=== PATIENT | female | born 1960 | race Caucasian/White ===

== ENCOUNTER 2021-01-29 14:13 | Outpatient (REF) | payer OTHER, BC, SELFPAY ==
--- NOTE | ~2021-01-29 | XR_ITS ---
EXAMINATION: XR CERVICAL SPINE CLINICAL INFORMATION: Neck pain. COMPARISON: X-ray 05/04/2017. TECHNIQUE: 6 views of the cervical spine were obtained. FINDINGS: Posterior vertebral body alignment is maintained. Predens space is maintained. No prevertebral soft tissue swelling. No evidence of acute fracture. Mild spondylosis at C4-C5, C5-C6. There is mild facet degeneration at a few levels. There is apparent prominent neural foraminal narrowing left upper/mid cervical spine, which could be secondary to positioning/technique. The base of the dens is intact. Visualized lung apices are clear. XR/XR cervical spine min 6V IMPRESSION: No evidence of acute osseous abnormality. Apparent prominent left-sided neural foraminal narrowing in the upper/mid cervical spine, which could be secondary to positioning/technique. Further evaluation with cross-sectional imaging as clinically warranted. Mild cervical spondylosis otherwise.
== END 2021-01-29 14:14 | disposition home or self-care (01) ==
LOC: HO.XRAY 14:13
PROVIDERS: PCP Family Medicine; Visit Provider Family Medicine
DX: M54.2 Cervicalgia (principal)
CPT/HCPCS: 72052

== ENCOUNTER → 2021-02-17 10:43 | Outpatient (BNVA) | payer OTHER, BC, SELFPAY | PROVIDERS: PCP Family Medicine; Visit Provider Anesthesiology | DX: M54.2 Cervicalgia (principal) | CPT/HCPCS: 99202 ==

== ENCOUNTER → 2021-05-03 10:05 | Outpatient (BNVA) | payer OTHER, SELFPAY | PROVIDERS: PCP Family Medicine; Visit Provider Anesthesiology | DX: M54.2 Cervicalgia (principal) | CPT/HCPCS: 99212 ==

== ENCOUNTER → 2021-07-19 14:52 | Outpatient (BNVA) | payer OTHER, SELFPAY | PROVIDERS: PCP Family Medicine; Visit Provider Anesthesiology | DX: M54.2 Cervicalgia (principal) | CPT/HCPCS: 99212 ==

== ENCOUNTER 2021-08-17 09:50 | Outpatient (REF) | payer BC, SELFPAY ==
--- NOTE | ~2021-08-17 | FL_ITS ---
EXAMINATION: FL BARIUM SWALLOW CLINICAL INFORMATION: Dysphagia COMPARISON: None TECHNIQUE: Barium swallow using thick barium and effervescent granules. The patient is imaged upright only. Prone images were not performed. Barium tablet was also administered. Fluoroscopy time: 0.4 minutes DAP: 1.4 Gycm2 Images: 31 FINDINGS: There is aspiration seen with thick liquid barium. Esophageal motility is normal. No esophageal mass, stricture or evidence of esophagitis is seen. No hernia or reflux was observed with the patient in the upright position. The barium tablet passed freely into the stomach. FL/FL barium swallow IMPRESSION: Aspiration with thick barium.
== END 2021-08-17 09:51 | disposition home or self-care (01) ==
LOC: HO.XRAY 09:50
PROVIDERS: PCP Family Medicine; Visit Provider Otolaryngology
DX: R13.10 Dysphagia, unspecified (principal)
CPT/HCPCS: 74220

== ENCOUNTER 2021-11-30 06:30 | Outpatient (REF) | payer BC, SELFPAY ==
--- NOTE | ~2021-11-30 | FL_ITS ---
EXAMINATION: XR FLUOROSCOPY WITH IMAGES CLINICAL INFORMATION: Cervicalgia. COMPARISON: 06/19/2017. TECHNIQUE: Fluoroscopy performed by Dr. Mitch Pittman. Fluoroscopy time: 40.5 seconds DlP: 4.02 mGy Images: 3 FINDINGS: [place] and contrast are seen overlying the location of the C7-T1, C6-C7, and C5-C6 left-sided facets. FL/FL guidance in treatment room IMPRESSION: Intraoperative fluoroscopy provided for pain management procedure.
== END 2021-11-30 06:31 | disposition home or self-care (01) ==
LOC: HO.RADIR 06:30
PROVIDERS: Visit Provider Anesthesiology
DX: M54.2 Cervicalgia (principal)
CPT/HCPCS: 64490; 64491; J3300

== ENCOUNTER 2021-12-09 10:23 | Outpatient (REF) | payer BC, SELFPAY ==
--- NOTE | 2021-12-09 10:27 | EMG_ITS ---
Right median and ulnar motor and sensory studies were performed, right radial sensory study was performed, and right median and lateral antecubital brachial sensory studies were performed. Needle examination was done. IMPRESSION: 1. 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 2. Mild right ulnar neuropathy across cubital tunnel. MD NEPTALI Moralez/WEI / [id number]
== END 2021-12-09 10:24 | disposition home or self-care (01) ==
LOC: HO.NEURO 10:23
PROVIDERS: Visit Provider Family Medicine
DX: M50.123 Cervical disc disorder at C6-C7 level with radiculopathy (principal); M62.838 Other muscle spasm; M46.92 Unspecified inflammatory spondylopathy, cervical region
CPT/HCPCS: 95886; 95910

== ENCOUNTER → 2022-01-31 14:21 | Outpatient (BNVA) | payer BC, SELFPAY | PROVIDERS: PCP Family Medicine; Visit Provider Anesthesiology | DX: M54.2 Cervicalgia (principal) | CPT/HCPCS: 20552; J2795; J3300 ==

== ENCOUNTER → 2022-05-23 15:51 | Outpatient (BNVA) | payer BC, SELFPAY | PROVIDERS: PCP Family Medicine; Visit Provider Anesthesiology | DX: M54.2 Cervicalgia (principal) ==

== ENCOUNTER 2022-09-08 13:35 | Outpatient (REF) | payer BC, SELFPAY ==
[2022-09-08 13:50] LABS: MANUAL DIFF FLAG NO
[2022-09-08 14:26] LABS: Basophils Percent Auto 0.7 % (0-2); Eosinophils Absolute Auto 0.1 X10*3/uL (0.0-0.4); Eosinophils Percent Auto 1.8 % (0-4); Hematocrit 44.1 % (37.0-47.0); Hemoglobin 14.6 g/dl (12.0-16.0); Lymphocytes Absolute Auto 1.9 X10*3/uL (1.2-4.9); Lymphocytes Percent Auto 31.9 % (20-40); Mean Corpuscular HGB Conc 33.1 g/dl (31.0-35.0); Mean Corpuscular Hemoglobin 33.3 pg (27.0-33.0); Mean Corpuscular Volume 100.7 fL (80.0-98.0); Mean Platelet Volume 10.4 fL (9.4-12.3); Monocytes Absolute Auto 0.6 X10*3/uL (0.1-1.2); Monocytes Percent Auto 10.4 % (2-11); Neutrophils Absolute Auto 3.3 x10*3/uL (2.0-8.3); Neutrophils Percent Auto 55.2 % (45-73); Platelet Count 196 X10*3/uL (160-400); Red Blood Count 4.38 X10*6/uL (4.20-5.50); Red Cell Distribution Width 12.9 % (11.0-16.0)
[2022-09-08 14:32] LABS: Alanine Aminotransferase 17 U/L (0-31); Albumin Level 4.2 g/dL (3.5-5.0); Alkaline Phosphatase 73 U/L (39-117); Anion Gap 10 (12-20); Aspartate Amino Transferase 15 U/L (5-31); Bilirubin Total 0.5 mg/dL (0.0-1.0); Blood Urea Nitrogen 13 mg/dL (9-16); Calcium 9.3 mg/dL (8.4-10.2); Carbon Dioxide 32 mmol/L (22-29); Chloride 105 mmol/L (96-108); Estimated Glomerular Filt Rate > 60; Glucose Random 90 mg/dL (60-115); Potassium 4.5 mmol/L (3.3-5.1); Sodium 142 mmol/L (135-145); Total Protein 6.1 g/dL (6.5-8.0)
[2022-09-08 14:53] LABS: Thyroid Stimulating Hormone 1.03 uIU/mL (0.32-4.0); Vitamin B12 355 pg/mL (200-900)
[2022-09-08 14:57] LABS: Appearance Urine Clear; Color Urine Yellow; Glucose Urine UA Negative (Negative); Leukocyte Esterase Urine Trace (Negative); Nitrite Urine Negative (Negative); Specific Gravity - Urine 1.025 (1.005-1.025); UMIC TRIGGER UA YES; Urine Blood Negative (Negative); Urine Ketones Negative (Negative); Urine Protein Negative (Neg-Trace)
[2022-09-08 15:03] LABS: Bacteria Urine None Seen (None Seen); Hyaline Casts Urine 0-2 /LPF (0-2); RBC Urine 0-2 /HPF (0-2)
[2022-09-08 15:19] LABS: Erythrocyte Sedimentation Rate 2 MM/HR (0-20)
[2022-09-10 15:14] LABS: Anti Nuclear Antibody Screen NEGATIVE (NEGATIVE)
== END 2022-09-08 13:36 | disposition home or self-care (01) ==
LOC: HO.LAB 13:35
PROVIDERS: PCP Family Medicine; Visit Provider Family Medicine
DX: G62.9 Polyneuropathy, unspecified (principal); R53.83 Other fatigue; R00.0 Tachycardia, unspecified
CPT/HCPCS: 36415; 80053; 81001; 82607; 84443; 85025; 85652; 86038; 86039

== ENCOUNTER 2022-10-10 10:40 | Outpatient (REF) | payer BC, SELFPAY ==
--- NOTE | ~2022-10-10 | XR_ITS ---
EXAMINATION: XR HIP, RIGHT CLINICAL INFORMATION: Pain COMPARISON: None available. TECHNIQUE: Two views of the right hip and one view of the pelvis. FINDINGS: Bone alignment is normal. No fracture or dislocation. Small osteophytes at both hip joints. No appreciable joint space narrowing. Bones of the pelvis are normal. Soft tissues are normal. XR/XR hip RT w PEL1V IMPRESSION: Mild degenerative changes.
== END 2022-10-10 10:41 | disposition home or self-care (01) ==
LOC: HO.HOSX 10:40
PROVIDERS: Visit Provider Physician Assistant
DX: M25.551 Pain in right hip (principal)
CPT/HCPCS: 73502

== ENCOUNTER 2022-10-24 13:23 | Outpatient (REF) | payer BC, SELFPAY ==
--- NOTE | ~2022-10-24 | FL_ITS ---
EXAMINATION: XR ARTHROGRAM HIP, RIGHT CLINICAL INFORMATION: Pain. COMPARISON: None available. TECHNIQUE: Following explaining fluoroscopy-guided right hip steroid injection procedure, benefits and risks, a written consent was obtained. Patient was placed supine on fluoroscopy table and anterior aspect of right hip joint was cleaned and draped in usual sterile manner. 1% lidocaine was injected at puncture site. A 22-gauge needle was then inserted from the marked site to the lateral border of right femoral neck and 2 mL of nonionic contrast was injected. Single image was obtained of the right hip with contrast in the joint space. Subsequently 1% lidocaine 8 mL and 1 mL 80 mg Depo-Medrol as a combination was injected and needle withdrawn. Complete hemostasis achieved at puncture site. Simple Band-Aid applied at puncture site. Patient tolerated procedure extremely well. FINDINGS: On fluoroscopy images obtained there is maintained hip joint space. No bony erosive changes. No lucencies or sclerosis. There is contrast along the lateral femoral neck. Approximately 8 mL 1% lidocaine and 1 mL of 80 mg Depo-Medrol was injected into the right hip joint space. FLUOROSCOPY TIME: 0.4 minutes DOSE AREA PRODUCT: 2.127 uGy-m2 (microgray-meter squared) FL/FL arthrogram hip RT IMPRESSION: Successful fluoroscopic-guided right hip steroid injection performed without immediate complications.
== END 2022-10-24 13:24 | disposition home or self-care (01) ==
LOC: HO.XRAY 13:23
PROVIDERS: PCP Family Medicine; Visit Provider Physician Assistant
DX: M25.551 Pain in right hip (principal); G89.29 Other chronic pain
CPT/HCPCS: 27093; 73525

== ENCOUNTER 2022-12-30 12:32 | Outpatient (AMB) | payer BC, SELFPAY ==
--- NOTE | 2022-12-30 12:36 | MHC.OFFVIS ---
Intake Vital Signs 12/30/22 12:37 Height 5 ft 4 in Weight 152 lb BMI 26.1 Intake Visit Reasons: ov- arthrogram hip RT / RIGHT HIP PAIN Intake Note: Ryana 62 yr old female presents today s/p fluro injection for her right hip done 10/24/22. States this injection has helped and has given her pain relief in groin area but is now having pain radiating down her lateral aspect of hip down her leg. Allergies coconut Allergy (Intermediate, Verified 12/30/22 12:42) SWELLING/HIVES HPI ov- arthrogram hip RT / RIGHT HIP PAIN HPI Details 62-year-old female who presents in the office today for a follow up of right hip pain. The patient had a arthrogram on 10/24/2022 in the right hip. She reports the injection has given her pain relief in the groin area. However, she states she is now having pain that radiates down her lateral aspect of the right hip down her leg. PFSH Medical History Cervicalgia Social History Patient Tobacco Use Status: Current everyday Tobacco user Current occupational status: employed Current occupation: e mail system administrator Review of Systems Const All systems reviewed & are unremarkable except as noted in HPI and below Physical Exam Vital Signs: BMI result Body Mass Index 26.1 Const General: cooperative, healthy appearing and no acute distress Resp Effort & Inspection: normal respiratory effort and able to speak in complete sentences Cardio Rate: regular rate Peripheral pulses: Peripheral pulses 2+ throughout GI Palpation (GI): Soft to palpation Skin Lesions: no lesions Rashes: no rashes Extrem Other: Right hip: Normal to inspection. No ecchymosis, erythema, or edema. Full hip ROM in all planes. No tenderness to palpation over the greater trochanteric bursa. 5/5 strength with resisted hip flexion, knee extension, abduction, and abduction. Pain with internal and external rotation in the groin. Groin pain with straight leg raise. NVI. Assessment & Plan Assessment & Plan (1) Chronic right hip pain: Code(s): M25.551 - Pain in right hip; G89.29 - Other chronic pain Plan Ms. Zepeda is a 62-year-old female who presents in the office today for a follow up of right hip pain. The patient had a arthrogram on 10/24/2022 in the right hip. She reports the injection has given her pain relief in the groin area. However, she states she is now having pain that radiates down her lateral aspect of the right hip down her leg. Patient states she has great relief with her groin pain after the arthrogram. However, she is still having radiating pain down the lateral aspect of the right lower extremity. I did discuss the role of Pain Management, but the patient states she has seen them in the past and does not wish to see a Pain Management provider. She would like to see a spine surgeon. Therefore, a referral has been placed. Follow up with orthopedics will be PRN, or sooner if needed. Patient Instructions: Scribed for Therese Recinos PA-C by Gisella Hinds medical laboratory manager, on 12/30/2022 at 12:34 pm, EST. Your attestation Coding Level of Care Code Est Pt Level 3 (62736) Diagnoses Chronic right hip pain M25.551; G89.29
[2022-12-30 12:37] VITALS: BMI 26.1
== END 2022-12-30 13:04 | disposition home or self-care (01) ==
PROVIDERS: Visit Provider Physician Assistant
DX: M25.551 Pain in right hip (principal); G89.29 Other chronic pain
CPT/HCPCS: 99213

== ENCOUNTER → 2022-12-30 12:32 | Outpatient (BNVA) | payer BC, SELFPAY | PROVIDERS: Visit Provider Physician Assistant ==